=== PATIENT | male | born 1975 | race Hispanic/Latino ===

== ENCOUNTER 2018-05-04 19:05 | Emergency (ER) | payer OTHER, MEDICARE ==
[~2018-05-04 19:05] MED LIST: ALLO100T PO; COLC0.6C3 PO; FURO40TA5 PO; FURO80TA3 PO; GLIM4TAB3 PO; INS7030 SQ; INSU100V12 SQ; LABE200T5 PO; SITA100T12 PO
== END 2018-05-04 20:30 | disposition home or self-care (01) ==
LOC: EDH 19:05
DX: S90.821A Blister (nonthermal), right foot, initial encounter (principal); L03.115 Cellulitis of right lower limb; I10 Essential (primary) hypertension; E11.9 Type 2 diabetes mellitus without complications; X58.XXXA Exposure to other specified factors, initial encounter; Y93.89 Activity, other specified; Y92.89 Other specified places as the place of occurrence of the external cause; Y99.8 Other external cause status
CPT/HCPCS: 73630

== ENCOUNTER 2020-03-07 16:28 | Inpatient (IN) | payer OTHER, MEDICARE ==
[~2020-03-07] VITALS: Ht 167.6 cm; Wt 96.2 kg
[~2020-03-07 16:28] MED LIST changes: -ALLO100T PO; +AMLO2.5T2 PO; -COLC0.6C3 PO; +EZET10TA48 PO; -FURO40TA5 PO; -FURO80TA3 PO; -GLIM4TAB3 PO; +HUM10VIA SQ; -INS7030 SQ
[2020-03-07 17:10] LABS: BASOPHILS % (AUTO) 0.4 % (0.0-5.0); EOSINOPHILS % (AUTO) 7.5 % (0.0-8.0); HEMATOCRIT 22.2 % (42-54); LYMPHOCYTES % (AUTO) 11.5 % (21.0-51.0); MEAN CORPUSCULAR HEMOGLOBIN 30.3 pg (27.0-33.0); MEAN CORPUSCULAR HGB CONC 32.9 g/dL (32.0-36.0); MEAN CORPUSCULAR VOLUME 92.1 fL (79-99); MONOCYTES % (AUTO) 6.2 % (3.0-13.0); NEUTROPHILS % (AUTO) 73.7 % (40.0-77.0); PLATELET COUNT (AUTO) 148 K/uL (130-400); RED BLOOD CELL COUNT(AUTO) 2.41 MIL/uL (4.50-6.20); RED CELL DISTRIBUTION WIDTH 13.2 % (11.0-15.5); WHITE BLOOD COUNT (AUTO) 7.6 K/uL (4.8-10.8)
[2020-03-07 17:27] LABS: INR 1.15 (0.85-1.15); PARTIAL THROMBOPLASTIN TIME 33.1 SEC (26.3-35.5); PROTHROMBIN TIME 12.4 SEC (9.6-11.6)
[2020-03-07 17:47] LABS: ALBUMIN 3.7 g/dL (3.5-5.0); BILIRUBIN,TOTAL 0.4 mg/dL (0.2-1.0); TOTAL PROTEIN, SERUM 7.9 g/dL (6.0-8.3)
[2020-03-07 17:59] LABS: CREATININE 18.6 mg/dL (0.5-1.5); POTASSIUM 6.9 mmol/L (3.5-5.1)
[2020-03-07] MEDS ORDERED: SODIUM POLYSTYRENE SULFONATE 15 GM/60 ML ML ONE ×3 (18:08→23:06)
[2020-03-07] MEDS ORDERED: PANTOPRAZOLE 40 MG/VIAL ONE (18:09)
[2020-03-07] MEDS ORDERED: DEXTROSE 50%-WATER 50 ML DISP.SYRIN IV ONE (18:09)
[2020-03-07] MEDS ORDERED: SODIUM BICARB 50MEQ 50ML VIAL 50 ML ONE (18:09)
[2020-03-07] MEDS ORDERED: FUROSEMIDE 10 MG/ML 4ML VIAL ONE (18:09)
[2020-03-07] MEDS ORDERED: INSULIN HUMULIN R 100 UNIT/ML 3ML ONE (18:10)
[2020-03-07] MEDS ORDERED: ALBUTEROL SULFATE 0.083% 2.5 MG/3 ML INH IH ONE (18:30)
[2020-03-07] MEDS ORDERED: LACTULOSE 20 GM/30 ML UDCUP PO PRN (19:00)
[2020-03-07] MEDS ORDERED: ACETAMINOPHEN 325 MG TAB PO PRN ×2 (19:00)
[2020-03-07] MEDS ORDERED: ONDANSETRON HCL 4 MG/2 ML VIAL IV PRN (19:00)
[2020-03-07] MEDS ORDERED: HYDRALAZINE HCL 20 MG/ML VIAL IV PRN (19:30)
[2020-03-07] MEDS ORDERED: SODIUM CHLORIDE 0.9% 100 ML IV ONE (20:17)
[2020-03-07] MEDS: INSULIN HUMULIN R 100 UNIT/ML 3ML SQ SCH (21:00)
[2020-03-07 22:26] LABS: HEMATOCRIT 21.5 % (42-54)
[2020-03-07] MEDS: SODIUM BICARBONATE 650 MG TAB PO SCH (23:00)
[2020-03-07] MEDS ORDERED: PHARMACY COMMUNICATION MISC SCH (23:00)
[2020-03-07] MEDS: SODIUM POLYSTYRENE SULFONATE 15 GM/60 ML ML PO SCH (23:00)
[2020-03-08] VITALS (12 sets, daily range): BP systolic 117–173; BP diastolic 59–83
[2020-03-08 04:35] LABS: APPEARANCE,URINE Clear (CLEAR); BILIRUBIN,URINE Negative (NEGATIVE); COLOR,URINE Yellow (YELLOW); GLUCOSE, URINE (UA) Negative (NEGATIVE); KETONES,URINE Negative (NEGATIVE); LEUKOCYTE ESTERASE ,URINE Small (NEGATIVE); NITRATE,URINE Negative (NEGATIVE); OCCULT BLOOD,URINE Small (NEGATIVE); PROTEIN,URINE 300 mg/dL (NEGATIVE); UROBILINOGEN,URINE 0.2 mg/dL (0.2-1.0)
[2020-03-08 04:49] LABS: BACTERIA,URINE Few /HPF (None Seen); MUCUS,URINE Few LPF (None Seen); RBC,URINE 0-1 /HPF (0-1); SQUAMOUS EPITHELIAL CELL,UR Moderate /HPF (0-2)
[2020-03-08 06:05] LABS: BASOPHILS % (AUTO) 0.4 % (0.0-5.0); EOSINOPHILS % (AUTO) 7.6 % (0.0-8.0); LYMPHOCYTES % (AUTO) 10.5 % (21.0-51.0); MEAN CORPUSCULAR HEMOGLOBIN 30.7 pg (27.0-33.0); MEAN CORPUSCULAR HGB CONC 33.3 g/dL (32.0-36.0); MONOCYTES % (AUTO) 9.1 % (3.0-13.0); NEUTROPHILS % (AUTO) 71.7 % (40.0-77.0); PLATELET COUNT (AUTO) 144 K/uL (130-400); RED BLOOD CELL COUNT(AUTO) 2.25 MIL/uL (4.50-6.20); RED CELL DISTRIBUTION WIDTH 13.2 % (11.0-15.5); WHITE BLOOD COUNT (AUTO) 7.6 K/uL (4.8-10.8)
[2020-03-08 06:07] LABS: HEMATOCRIT 20.7 % (42-54)
[2020-03-08 06:17] LABS: POTASSIUM 5.1 mmol/L (3.5-5.1)
[2020-03-08 06:20] LABS: CREATININE 18.8 mg/dL (0.5-1.5)
[2020-03-08] MEDS ORDERED: FURO40TA5 PO (06:20)
[2020-03-08] MEDS ORDERED: CALC600T15 PO (06:20)
[2020-03-08] MEDS ORDERED: AMLO-257 PO (06:20)
--- NOTE | 2020-03-08 06:26 | NUR ---
PT ADMITTED FROM ER, REPORT FROM TIANA THORNTON. PT IS AAOX4, NO ACUTE DISTRESS. POC DISCUSSED WITH PATIENT. PT IS TO BE NPO UNTIL SEEN BY DR. CRUZ FOR POSSIBLE DIALYSIS CATHETER PLACEMENT FOR DIALYSIS. PT IS AWARE. PLAN FOR BLOOD TRANSFUSION, FIRST TO BE DISCUSSED WITH DR. CRUZ. INSTRUCTED TO CALL FOR ASSISTANCE IF NEEDED, CALL DAY WITH IN REACH. TELE MONITORING S 81
[2020-03-08] MEDS: INSULIN HUMULIN R 100 UNIT/ML 3ML SQ SCH ×3 (07:17→21:00)
--- NOTE | 2020-03-08 09:37 | NUR ---
CONSENT SIGNED FOR PERMA CATH PLACEMENT BY THE MOTHER. PT. IS BLIND TR. EYE AND TISHA SEES SPOTS WITH THE LT.
[2020-03-08] MEDS ORDERED: LABETALOL HCL 200 MG TABLET PO SCH (09:45)
[2020-03-08] MEDS ORDERED: LIDOCAINE HCL 1% MDV 50ML VIAL ONE (09:59)
[2020-03-08] MEDS ORDERED: MIDAZOLAM HCL 1 MG/ML 2ML VIAL ONE (10:33)
--- NOTE | 2020-03-08 11:18 | NUR ---
BACK FROM [employer]IPMENT. DOUBLE LUMEN PERMA-CATH IN PLACE, RT. UPPER CHEST. DRESSING IN PLACE CLEAN AND DRY. NO SWELLING , BRUISING NOTED.
[2020-03-08] MEDS ORDERED: EPOETIN ALFA 10,000 UNIT/ML VIAL SQ SCH (11:30)
[2020-03-08] MEDS ORDERED: COMPOUND IV MISC 1 EACH IVSOLN MISC PRN (11:45)
[2020-03-08] MEDS: AMLODIPINE BESYLATE 5 MG TAB PO SCH ×2 (12:17→12:19)
[2020-03-08] MEDS: SODIUM BICARBONATE 650 MG TAB PO SCH ×3 (12:19→21:36)
[2020-03-08] MEDS: PANTOPRAZOLE SODIUM 40 MG TABLET.DR PO SCH (12:19)
--- NOTE | 2020-03-08 12:35 | NUR ---
CONSENT FOR H-D HAS BEEN SIGNED AND H-D NURSE HAS BEEN NOTIFIED.
[2020-03-08 12:48] LABS: HEMATOCRIT 20.3 % (42-54)
[2020-03-08 13:01] LABS: HEMOGLOBIN A1C 5.5 % (4.0-6.0)
[2020-03-08 13:08] LABS: ALBUMIN 3.6 g/dL (3.5-5.0)
[2020-03-08 13:11] LABS: CREATININE 18.8 mg/dL (0.5-1.5)
[2020-03-08 13:39] LABS: % IRON SATURATION 42.8 % (30-44)
[2020-03-08] MEDS ORDERED: HEPARIN SODIUM 5000UNIT/ML 1ML VIAL ONE (16:07)
--- NOTE | 2020-03-08 17:15 | NUR ---
DCP CM met with pt discussed dc plans. Pt is semi-independent prior to admission, livest at home with son, mother lives close by. Pt has a shower chair. 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 Denies any other equipments/services. Feels safe to go back home, mother able to assist with transportation and needs as necessary. DC plan to home once stable. CM to continue to follow up. Addendum: 03/08/20 at 1717 by MICHELLE CARDONA LVN CM Amended: Links added.
--- NOTE | 2020-03-08 20:00 | NUR ---
assessment note patient awake alert, ox3, no sob,no c/o pain at this time , discuss with patient plan of care and expected outcome, patient verbalizes understanding via teach back
[2020-03-08] MEDS: SODIUM POLYSTYRENE SULFONATE 15 GM/60 ML ML PO SCH (20:02)
[2020-03-08] MEDS ORDERED: SODIUM CHLORIDE 0.9% 1000ML 1,000 ML IV PRN (21:00)
[2020-03-08] MEDS ORDERED: ACETAMINOPHEN 325 MG TAB PO PRN (21:00)
[2020-03-08] MEDS ORDERED: 0.9% SODIUM CHLORIDE 1000 ML IV BAG IV PRN (21:00)
[2020-03-08] MEDS ORDERED: HEPARIN SODIUM 5000UNIT/ML 1ML VIAL IJ PRN (21:00)
[2020-03-09] VITALS (7 sets, daily range): BP systolic 123–178; BP diastolic 67–86
[2020-03-09 05:48] LABS: BASOPHILS % (AUTO) 0.2 % (0.0-5.0); EOSINOPHILS % (AUTO) 6.9 % (0.0-8.0); LYMPHOCYTES % (AUTO) 13.5 % (21.0-51.0); MEAN CORPUSCULAR HEMOGLOBIN 30.7 pg (27.0-33.0); MEAN CORPUSCULAR HGB CONC 34.3 g/dL (32.0-36.0); MEAN CORPUSCULAR VOLUME 89.6 fL (79-99); MONOCYTES % (AUTO) 12.2 % (3.0-13.0); NEUTROPHILS % (AUTO) 66.9 % (40.0-77.0); PLATELET COUNT (AUTO) 142 K/uL (130-400); RED BLOOD CELL COUNT(AUTO) 2.31 MIL/uL (4.50-6.20); WHITE BLOOD COUNT (AUTO) 8.9 K/uL (4.8-10.8)
[2020-03-09 05:50] LABS: HEMATOCRIT 20.7 % (42-54)
[2020-03-09 05:52] LABS: POTASSIUM 3.7 mmol/L (3.5-5.1)
[2020-03-09 05:57] LABS: CREATININE 12.2 mg/dL (0.5-1.5)
[2020-03-09] MEDS: INSULIN HUMULIN R 100 UNIT/ML 3ML SQ SCH ×4 (06:50→20:45)
[2020-03-09 08:13] LABS: HEPATITIS Bs ANTIGEN SCREEN P Negative (Negative)
[2020-03-09] MEDS ORDERED: FUROSEMIDE 80 MG TABLET PO SCH (09:00)
[2020-03-09] MEDS ORDERED: CALCIUM CARBONATE 500 MG TABLET PO SCH (09:00)
[2020-03-09] MEDS: AMLODIPINE BESYLATE 5 MG TAB PO SCH (09:25)
[2020-03-09] MEDS: EZETIMIBE 10 MG TAB PO SCH (09:31)
[2020-03-09] MEDS: PANTOPRAZOLE SODIUM 40 MG TABLET.DR PO SCH (09:31)
[2020-03-09] MEDS: LISINOPRIL 40 MG TABLET PO SCH (09:32)
[2020-03-09] MEDS: IRON SUCROSE COMPLEX 100 MG in SODIUM CHLORIDE 0.9% 50 ML IV SCH (09:33)
[2020-03-09] MEDS: LABETALOL HCL 200 MG TABLET PO SCH (11:34)
[2020-03-09] MEDS: SODIUM BICARBONATE 650 MG TAB PO SCH (16:29)
[2020-03-09] MEDS: SODIUM POLYSTYRENE SULFONATE 15 GM/60 ML ML PO SCH (16:29)
--- NOTE | 2020-03-09 20:00 | NUR ---
assessment note awake alert ox3, no sob, no c/o pain at this time, right upper chest wall permacath intact, instruct patient to call nurse for assistance, teach patient plan of care and expected outcome , patient verbalizes understanding via teach back
[2020-03-10 04:35] VITALS: BP 162/77
[2020-03-10] MEDS: INSULIN HUMULIN R 100 UNIT/ML 3ML SQ SCH ×4 (06:03→20:44)
[2020-03-10 06:14] LABS: BASOPHILS % (AUTO) 0.3 % (0.0-5.0); HEMATOCRIT 27.6 % (42-54); LYMPHOCYTES % (AUTO) 11.4 % (21.0-51.0); MEAN CORPUSCULAR HEMOGLOBIN 30.3 pg (27.0-33.0); MEAN CORPUSCULAR HGB CONC 34.4 g/dL (32.0-36.0); MEAN CORPUSCULAR VOLUME 87.9 fL (79-99); MONOCYTES % (AUTO) 12.9 % (3.0-13.0); NEUTROPHILS % (AUTO) 68.1 % (40.0-77.0); NUCLEATED RED BLOOD CELLS 0.2 % (0.0-0.19); PLATELET COUNT (AUTO) 162 K/uL (130-400); RED BLOOD CELL COUNT(AUTO) 3.14 MIL/uL (4.50-6.20); RED CELL DISTRIBUTION WIDTH 12.5 % (11.0-15.5); WHITE BLOOD COUNT (AUTO) 11.5 K/uL (4.8-10.8)
[2020-03-10 06:26] LABS: MAGNESIUM 1.6 mg/dL (1.80-2.40); POTASSIUM 3.7 mmol/L (3.5-5.1)
[2020-03-10 06:50] LABS: CREATININE 8.4 mg/dL (0.5-1.5)
[2020-03-10 08:34] VITALS: BP 178/83
[2020-03-10] MEDS: LISINOPRIL 40 MG TABLET PO SCH ×2 (09:15→09:20)
[2020-03-10] MEDS: LABETALOL HCL 200 MG TABLET PO SCH (09:20)
[2020-03-10] MEDS: AMLODIPINE BESYLATE 5 MG TAB PO SCH ×2 (09:20→09:21)
[2020-03-10] MEDS: PANTOPRAZOLE SODIUM 40 MG TABLET.DR PO SCH (09:20)
[2020-03-10] MEDS: IRON SUCROSE COMPLEX 100 MG in SODIUM CHLORIDE 0.9% 50 ML IV SCH (09:21)
[2020-03-10] MEDS: EZETIMIBE 10 MG TAB PO SCH (10:43)
[2020-03-10 11:44] VITALS: BP 174/86
--- NOTE | 2020-03-10 14:00 | NUR ---
cm note met with patient and discussed need for HD setup at [facility]. pt is in agreement for referral, choice letter obtained.
[2020-03-10 16:59] VITALS: BP 175/75
[2020-03-10 20:22] VITALS: BP 196/94
[2020-03-10 23:32] VITALS: BP 166/69
[2020-03-11] VITALS (7 sets, daily range): BP systolic 152–198; BP diastolic 73–93
[2020-03-11] MEDS: INSULIN HUMULIN R 100 UNIT/ML 3ML SQ SCH ×4 (06:10→21:00)
[2020-03-11 06:11] LABS: CREATININE 5.6 mg/dL (0.5-1.5); MAGNESIUM 1.7 mg/dL (1.80-2.40); POTASSIUM 3.5 mmol/L (3.5-5.1)
[2020-03-11] MEDS: AMLODIPINE BESYLATE 5 MG TAB PO SCH (10:06)
[2020-03-11] MEDS: PANTOPRAZOLE SODIUM 40 MG TABLET.DR PO SCH (10:06)
[2020-03-11] MEDS: EZETIMIBE 10 MG TAB PO SCH (10:06)
[2020-03-11] MEDS: LABETALOL HCL 200 MG TABLET PO SCH ×2 (10:06→19:57)
[2020-03-11] MEDS: LISINOPRIL 40 MG TABLET PO SCH (10:07)
[2020-03-11] MEDS: IRON SUCROSE COMPLEX 100 MG in SODIUM CHLORIDE 0.9% 50 ML IV SCH (11:21)
[2020-03-11] MEDS ORDERED: HYDRALAZINE HCL 25 MG TABLET ONE (13:59)
[2020-03-11] MEDS ORDERED: HYDRALAZINE HCL 25 MG TABLET PO SCH (14:00)
--- NOTE | 2020-03-11 14:44 | NUR ---
Dr. Asencio Spoke to MD via telephone [phone] to inquire about plan for AV access procedure. I asked Dr. Asencio if he would like for me to schedule procedure for tomorrow and MD replied that he would come to hospital later today to "take care of it." So I clarified to Dr. Asencio, "You are coming to schedule the procedure yourself?" and he replied "Yes, I will do it."
--- NOTE | 2020-03-11 14:49 | NUR ---
cm note faxed clinical info to [facility] for dialysis setup, pending approval.
[2020-03-12] VITALS (25 sets, daily range): BP systolic 127–172; BP diastolic 50–94
[2020-03-12 05:02] LABS: HEMATOCRIT 26.4 % (42-54); MEAN CORPUSCULAR HEMOGLOBIN 30.1 pg (27.0-33.0); MEAN CORPUSCULAR HGB CONC 33.7 g/dL (32.0-36.0); MEAN CORPUSCULAR VOLUME 89.2 fL (79-99); RED BLOOD CELL COUNT(AUTO) 2.96 MIL/uL (4.50-6.20); RED CELL DISTRIBUTION WIDTH 12.5 % (11.0-15.5); WHITE BLOOD COUNT (AUTO) 11.6 K/uL (4.8-10.8)
[2020-03-12 05:11] LABS: CREATININE 7.3 mg/dL (0.5-1.5); POTASSIUM 3.2 mmol/L (3.5-5.1)
[2020-03-12] MEDS: INSULIN HUMULIN R 100 UNIT/ML 3ML SQ SCH ×4 (05:20→20:17)
[2020-03-12] MEDS ORDERED: CEFAZOLIN SODIUM 1 GM VIAL ONE ×2 (07:22→08:30)
[2020-03-12] MEDS ORDERED: OCTYL 2-CYANOACRYLATE 1 EACH TP ONE (07:22)
[2020-03-12] MEDS ORDERED: LIDOCAINE PF 2% 5ML ABBOJECT ONE (07:42)
[2020-03-12] MEDS ORDERED: FENTANYL CITRATE PF 50 MCG/1 ML 2ML VIAL ONE (07:42)
[2020-03-12] MEDS ORDERED: PROPOFOL 10 MG/ML 20ML VIAL IV ONE (07:42)
[2020-03-12] MEDS ORDERED: MIDAZOLAM HCL 1 MG/ML 2ML VIAL ONE (07:42)
[2020-03-12] MEDS ORDERED: SUCCINYLCHOLINE CHLORIDE 20 MG/ML 10 ML VIAL ONE (07:42)
[2020-03-12] MEDS ORDERED: ROCURONIUM 10MG/1ML SYR 10 MG/ML ML ONE (07:42)
[2020-03-12] MEDS ORDERED: CLINDAMYCIN 900 MG/D5% WATER 50 ML IV SCH (08:00)
[2020-03-12] MEDS ORDERED: HEPARIN SODIUM 1000UNIT/ML 10ML VIAL ONE (09:25)
[2020-03-12] MEDS ORDERED: PROTAMINE SULFATE 10 MG/ML 25ML VIAL IV ONE (09:25)
[2020-03-12] MEDS ORDERED: NEOSTIGMINE 5MG/5ML SYR IV ONE (09:30)
[2020-03-12] MEDS ORDERED: GLYCOPYRROLATE 1 MG/5 ML SYRINGE ONE (09:30)
[2020-03-12] MEDS ORDERED: DEXAMETHASONE SOD PHOSPHATE 10MG/ML 1ML VIAL ONE (09:32)
[2020-03-12] MEDS ORDERED: TRAMADOL HCL 50 MG TABLET PO PRN ×2 (09:45)
[2020-03-12] MEDS: AMLODIPINE BESYLATE 5 MG TAB PO SCH (12:18)
[2020-03-12] MEDS: EZETIMIBE 10 MG TAB PO SCH (13:41)
[2020-03-12] MEDS: PANTOPRAZOLE SODIUM 40 MG TABLET.DR PO SCH (13:41)
[2020-03-12] MEDS: LABETALOL HCL 200 MG TABLET PO SCH ×2 (13:42→20:27)
[2020-03-12] MEDS: IRON SUCROSE COMPLEX 100 MG in SODIUM CHLORIDE 0.9% 50 ML IV SCH (13:49)
--- NOTE | 2020-03-12 15:15 | NUR ---
RD NOTE Pt admitted due to ESRD and hyperkalemia Pt has new ESRD dx and HD initiation. RD consulted for ESRD diet education. Current diet order: CLD due to AV fistula procedure on 03/12/20 Prior PO intake as per EMR was 100%. Upon admission pt had an A1c of 5.5, K 6.9, creat of 18.6. RD RECOMMENDATION: When medically appropriate to advance diet consider a Renal HD diet with a [address] will follow with diet education. Monitor PO tolerance and intake. LABS: HGB 8.9, HCT 26.4, K 3.2, BUN 32, CREAT 7.3, GFR 9, BG 136, ALB 3.6, MG 1.7, A1C 5.5, TOT CA 6.7 LBM: 03/11/20 Addendum: 03/12/20 at [address] Amended: Links added.
[2020-03-12] MEDS: LISINOPRIL 40 MG TABLET PO SCH (16:29)
[2020-03-12] MEDS ORDERED: BENZOCAINE/MENTH/CETYLPYRD CL 1 EACH LOZENGE MM PRN (23:15)
[2020-03-12] MEDS ORDERED: BENZOCAINE/MENTH/CETYLPYRD CL 1 EACH LOZENGE MM ONE (23:20)
[2020-03-13 03:52] VITALS: BP 160/69
[2020-03-13 05:39] LABS: BASOPHILS % (AUTO) 0.2 % (0.0-5.0); EOSINOPHILS % (AUTO) 0.1 % (0.0-8.0); HEMATOCRIT 24.3 % (42-54); LYMPHOCYTES % (AUTO) 5.4 % (21.0-51.0); MEAN CORPUSCULAR HEMOGLOBIN 30.3 pg (27.0-33.0); MEAN CORPUSCULAR HGB CONC 33.7 g/dL (32.0-36.0); MEAN CORPUSCULAR VOLUME 89.7 fL (79-99); NEUTROPHILS % (AUTO) 87.8 % (40.0-77.0); PLATELET COUNT (AUTO) 159 K/uL (130-400); RED BLOOD CELL COUNT(AUTO) 2.71 MIL/uL (4.50-6.20); RED CELL DISTRIBUTION WIDTH 12.6 % (11.0-15.5); WHITE BLOOD COUNT (AUTO) 15.7 K/uL (4.8-10.8)
[2020-03-13] MEDS: INSULIN HUMULIN R 100 UNIT/ML 3ML SQ SCH ×3 (05:59→16:30)
[2020-03-13 06:15] LABS: POTASSIUM 3.8 mmol/L (3.5-5.1)
[2020-03-13 06:20] LABS: CREATININE 8.7 mg/dL (0.5-1.5)
[2020-03-13] MEDS ORDERED: INSULIN GLARGINE 100 UNITS/ML 10 ML VIAL SQ SCH (08:00)
[2020-03-13 08:38] VITALS: BP 176/82
[2020-03-13] MEDS: IRON SUCROSE COMPLEX 100 MG in SODIUM CHLORIDE 0.9% 50 ML IV SCH (09:00)
--- NOTE | 2020-03-13 11:24 | NUR ---
CM Note: [facility] approval and acceptance, chair time MWF @ 3rd shift. CM spoke to Yony joseph/[facility] Intake, pt has tentative approval and chair time MWF @ 3rd shift. Pt safe to dc once MD clear. Primary nurse Ayaka KIM aware. CM to continue to follow up.
[2020-03-13 11:30] VITALS: BP 175/74
--- NOTE | 2020-03-13 15:49 | NUR ---
RD TEACHING NOTE New dialysis pt. Pt was given education and tips to limit potassium, phosphorus and sodium. Pt verbalized understanding. Pt is visually impaired however, he stated his mother can read the handouts provided to him; pt lives with mom. RD slowly went through foods recommended vs foods not recommended. Pt had questions on any community program that delivered hot meals. Pt was encouraged to ask Case Management for any outpatient programs. Pt was encouraged to communicate any nutritional concerns to outpatient renal dietitian. Handouts were left at bedside. Pt encouraged to contact RD if he had any other questions. Pt's PO intake is of 75-100% RD will continue to follow pt's status Addendum: 03/13/20 at [address] Amended: Links added.
[2020-03-13] MEDS: PANTOPRAZOLE SODIUM 40 MG TABLET.DR PO SCH (15:59)
[2020-03-13] MEDS: AMLODIPINE BESYLATE 5 MG TAB PO SCH (15:59)
[2020-03-13] MEDS: EZETIMIBE 10 MG TAB PO SCH (15:59)
[2020-03-13] MEDS: LISINOPRIL 40 MG TABLET PO SCH (16:00)
[2020-03-13] MEDS: LABETALOL HCL 200 MG TABLET PO SCH (16:01)
[2020-03-13 17:09] VITALS: BP 182/89
--- NOTE | 2020-03-13 17:47 | NUR ---
CM Note: [facility] Nic MWF @ 2:30pm CM spoke to Jayna w/[facility] Nic Intake, pt has appointment MWF @2:30pm starting tomorrow Thursday. Pt given instructions. Pt to arrive at center 30min prior to chair time. Pt to bring ID card, Insurance card, medication bottles, pt verbalized understanding. Primary nurse Ayaka KIM aware. CM to continue to follow up.
[2020-03-13 20:38] VITALS: BP 160/88
[2020-03-13] MEDS ORDERED: HYDRALAZINE HCL 25 MG TABLET PO SCH (21:00)
--- NOTE | 2020-03-13 21:39 | NUR ---
PER MD PT WAS DC'D HOME. DISCHARGE INSTRUCTIONS GIVEN TO PT AND MOTHER. THEY WERE PROVIDED WITH EXIT CARE ON NEW MEDICATIONS PRESCRIBED BY MD, PRESCRIPTIONS PLACED IN CHART, EDUCATION ON DIALYSIS ANDF DIALYSIS DIET WERE ALSO PROVIDED. PT WAS EDUCATED ON WHAT HE CAN OR CANNOT CONSUME. PT WAS PROVIDED WITH F/U APPTS AND OFFICE PHONE NUMBERS AND INSTRUCTED HIS MOTHER TO ASSIST HIM WITH CALL TO MAKE APPTS. THE PT WAS INSTRUCTED TO GO TO [facility] IN [place] FOR DIALYSIS TOMORROW AND PROVIDED WITH TIME AND OFFICE NUMBER. PT AND HIS MOTHER BOTH STATED UNDERSTANDING AND NO QUESTIONS AT THIS POINT. TELE AND IV REMOVED, TIP INTACT.
== END 2020-03-13 20:25 | disposition home or self-care (01) | DRG 673 ==
LOC: EDH 16:28 → EDHIP 18:59 → 3AH 03-08 04:38 → 3CH 03-12 10:21
PROVIDERS: ADMIT Internal Medicine; ATTEND Internal Medicine
PROC: 0JH63XZ Insertion of Tunneled Vascular Access Device into Chest Subcutaneous Tissue and Fascia, Percutaneous Approach (ICD-10-PCS; 2020-03-08)
PROC: 5A1D70Z Performance of Urinary Filtration, Intermittent, Less than 6 Hours Per Day (ICD-10-PCS; 2020-03-08)
PROC: 02H633Z Insertion of Infusion Device into Right Atrium, Percutaneous Approach (ICD-10-PCS; 2020-03-08)
PROC: B5181ZA Fluoroscopy of Superior Vena Cava using Low Osmolar Contrast, Guidance (ICD-10-PCS; 2020-03-08)
PROC: B548ZZA Ultrasonography of Superior Vena Cava, Guidance (ICD-10-PCS; 2020-03-08)
PROC: 30233N1 Transfusion of Nonautologous Red Blood Cells into Peripheral Vein, Percutaneous Approach (ICD-10-PCS; 2020-03-09)
PROC: 5A1D70Z Performance of Urinary Filtration, Intermittent, Less than 6 Hours Per Day (ICD-10-PCS; 2020-03-09)
PROC: 5A1D70Z Performance of Urinary Filtration, Intermittent, Less than 6 Hours Per Day (ICD-10-PCS; 2020-03-11)
PROC: 031C0ZF Bypass Left Radial Artery to Lower Arm Vein, Open Approach (ICD-10-PCS; principal; 2020-03-12 08:00)
PROC: 5A1D70Z Performance of Urinary Filtration, Intermittent, Less than 6 Hours Per Day (ICD-10-PCS; 2020-03-13)
DX: I12.0 Hypertensive chronic kidney disease with stage 5 chronic kidney disease or end stage renal disease (principal); N18.6 End stage renal disease; K92.2 Gastrointestinal hemorrhage, unspecified; D63.8 Anemia in other chronic diseases classified elsewhere; E87.5 Hyperkalemia; Z88.0 Allergy status to penicillin; Z20.828 Contact with and (suspected) exposure to other viral communicable diseases; E11.22 Type 2 diabetes mellitus with diabetic chronic kidney disease; E11.319 Type 2 diabetes mellitus with unspecified diabetic retinopathy without macular edema; E66.9 Obesity, unspecified; E11.65 Type 2 diabetes mellitus with hyperglycemia; E11.42 Type 2 diabetes mellitus with diabetic polyneuropathy; E78.5 Hyperlipidemia, unspecified; E83.51 Hypocalcemia; M10.9 Gout, unspecified; Z68.33 Body mass index [BMI] 33.0-33.9, adult; Z79.4 Long term (current) use of insulin; Z82.3 Family history of stroke; Z82.49 Family history of ischemic heart disease and other diseases of the circulatory system; Z83.3 Family history of diabetes mellitus; Z91.15 Patient's noncompliance with renal dialysis; Z99.2 Dependence on renal dialysis
CPT/HCPCS: 36415; 36430; 36558; 71045; 77001; 80048; 80053; 80061; 81001; 82040; 82270; 82550; 82565; 82728; 82948; 83036; 83540; 83550; 83735; 84132; 84484; 84520; 85014; 85018; 85025; 85027; 85610; 85730; 86701; 86704; 86706; 86850; 86900; 86901; 86922; 86923; 87340; 87390; 87520; 90935; 93005; 93971; 94640; 99156; 99157; 99291; C1750; C9113; G0378; J0330; J0690; J1100; J1644; J1756; J1815; J1940; J2001; J2250; J2704; J2710; J2720; J3010; J3490; J7030; J7070; P9016; U0003

== ENCOUNTER → 2020-04-04 | Outpatient (CLI) | payer OTHER, MEDICARE ==
[~2020-04-04] MED LIST changes: +AMLO-257 PO; -AMLO2.5T2 PO; +CALC600T15 PO; +FURO40TA5 PO; -HUM10VIA SQ; -INSU100V12 SQ; -LABE200T5 PO; -SITA100T12 PO
== END | disposition home or self-care (01) ==
LOC: RAH 08:27
PROVIDERS: ATTEND Internal Medicine Nephrology
DX: T78.49XA Other allergy, initial encounter (principal); Z99.2 Dependence on renal dialysis
CPT/HCPCS: 71046

== ENCOUNTER 2020-09-04 08:34 | Day surgery (SDC) | payer OTHER, MEDICARE ==
[2020-08-30 09:03] LABS: BASOPHILS % (AUTO) 0.8 % (0.0-5.0); EOSINOPHILS % (AUTO) 6.6 % (0.0-8.0); HEMATOCRIT 32.3 % (42-54); LYMPHOCYTES % (AUTO) 25.2 % (21.0-51.0); MEAN CORPUSCULAR HEMOGLOBIN 31.8 pg (27.0-33.0); MEAN CORPUSCULAR HGB CONC 34.1 g/dL (32.0-36.0); MEAN CORPUSCULAR VOLUME 93.4 fL (79-99); MONOCYTES % (AUTO) 9.4 % (3.0-13.0); NEUTROPHILS % (AUTO) 57.7 % (40.0-77.0); PLATELET COUNT (AUTO) 203 K/uL (130-400); RED BLOOD CELL COUNT(AUTO) 3.46 MIL/uL (4.50-6.20); RED CELL DISTRIBUTION WIDTH 13.2 % (11.0-15.5)
[2020-08-30 09:18] LABS: POTASSIUM 4.6 mmol/L (3.5-5.1)
[2020-08-30 09:19] LABS: INR 1.12 (0.85-1.15); PROTHROMBIN TIME 12.1 SEC (9.6-11.6)
[2020-08-30 09:20] LABS: PARTIAL THROMBOPLASTIN TIME 28.8 SEC (26.3-35.5)
[2020-08-30 09:29] LABS: CREATININE 8.5 mg/dL (0.5-1.5)
[2020-09-03 11:52] VITALS: BP 119/72
[~2020-09-04] VITALS: Ht 167.6 cm; Wt 80.1 kg
[2020-09-04] VITALS (7 sets, daily range): BP systolic 109–174; BP diastolic 66–83
[~2020-09-04 08:34] MED LIST changes: +CALC-1125 PO; -CALC600T15 PO
[2020-09-04] MEDS ORDERED: IODIXANOL 320 MG/ML 100 ML VIAL ONE ×2 (09:42→11:12)
[2020-09-04] MEDS ORDERED: LIDOCAINE HCL 1% MDV 50ML VIAL ONE (09:42)
[2020-09-04] MEDS ORDERED: HEPARIN SODIUM 1000UNIT/ML 10ML VIAL ONE (09:42)
[2020-09-04] MEDS ORDERED: SODIUM CHLORIDE 0.9% 1000ML 1,000 ML IV ONE (14:49)
== END 2020-09-04 14:00 | disposition home or self-care (01) ==
LOC: DAH 08:34
PROVIDERS: ATTEND Thoracic Surgery (Cardiothoracic Vascular Surgery)
DX: T82.590A Other mechanical complication of surgically created arteriovenous fistula, initial encounter (principal); I77.0 Arteriovenous fistula, acquired; Z79.899 Other long term (current) drug therapy; I87.1 Compression of vein; Z79.01 Long term (current) use of anticoagulants; Z88.0 Allergy status to penicillin; Z79.4 Long term (current) use of insulin; Z88.8 Allergy status to other drugs, medicaments and biological substances; Y83.2 Surgical operation with anastomosis, bypass or graft as the cause of abnormal reaction of the patient, or of later complication, without mention of misadventure at the time of the procedure
CPT/HCPCS: 36415; 36902; 36907; 80048; 82948 ×2; 85025; 85610; 85730; A4215; A4221; A4222; A4223; A4663; C1725 ×2; C1769 ×4; C1894 ×3; J1644 ×2; J3490; J7030; Q9967 ×2

== ENCOUNTER 2021-03-16 09:31 | Emergency (ER) | payer OTHER, MEDICARE ==
[~2021-03-16] VITALS: Ht 167.6 cm; Wt 81.6 kg
[2021-03-16] MEDS ORDERED: LIDOCAINE HCL 2% JELLY 5 ML ONE (09:54)
[2021-03-16 11:46] VITALS: BP 164/74
== END 2021-03-16 11:48 | disposition home or self-care (01) ==
LOC: EDH 09:31
DX: R33.9 Retention of urine, unspecified (principal); E78.00 Pure hypercholesterolemia, unspecified; I11.9 Hypertensive heart disease without heart failure; Z88.0 Allergy status to penicillin; Z79.899 Other long term (current) drug therapy; Z98.890 Other specified postprocedural states
CPT/HCPCS: 51702

== ENCOUNTER 2021-03-26 14:35 | Emergency (ER) | payer OTHER, MEDICARE ==
[~2021-03-26] VITALS: Ht 167.6 cm; Wt 79.4 kg
[2021-03-26] MEDS ORDERED: HYDROCODONE/ACETAMINOPHEN 5/325 MG TAB PO STA (15:47)
[2021-03-26] MEDS ORDERED: LIDOCAINE HCL 2% VISCOUS 15 ML UDCUP PO ONE (16:00)
[2021-03-26 16:18] VITALS: BP 112/80
== END 2021-03-26 16:20 | disposition home or self-care (01) ==
LOC: EDH 14:35
DX: T83.098A Other mechanical complication of other urinary catheter, initial encounter (principal); I10 Essential (primary) hypertension; E11.9 Type 2 diabetes mellitus without complications; Z88.0 Allergy status to penicillin; Z79.899 Other long term (current) drug therapy; Y83.8 Other surgical procedures as the cause of abnormal reaction of the patient, or of later complication, without mention of misadventure at the time of the procedure; Y92.89 Other specified places as the place of occurrence of the external cause

== ENCOUNTER 2022-05-14 07:28 | Emergency (ER) | payer OTHER, MEDICARE ==
[~2022-05-14] VITALS: Ht 167.6 cm; Wt 95.7 kg
[~2022-05-14 07:28] MED LIST changes: -AMLO-257 PO; -CALC-1125 PO; -EZET10TA48 PO; +FOLI1TAB85 PO; -FURO40TA5 PO; +INSLAN SQ; +LEVO750T68 PO; +LINA5TAB PO
[2022-05-14] MEDS ORDERED: HYDROMORPHONE 0.5 MG SYG (0.5MG/0.5ML) IM ONE (08:00)
[2022-05-14] MEDS ORDERED: ACETAMINOPHEN 500 MG TABLET PO ONE (08:00)
[2022-05-14 09:24] LABS: BASOPHILS % (AUTO) 0.4 % (0.0-5.0); EOSINOPHILS % (AUTO) 3.9 % (0.0-8.0); HEMATOCRIT 34.6 % (42-54); LYMPHOCYTES % (AUTO) 12.3 % (21.0-51.0); MEAN CORPUSCULAR HEMOGLOBIN 33.1 pg (27.0-33.0); MEAN CORPUSCULAR HGB CONC 34.7 g/dL (32.0-36.0); MEAN CORPUSCULAR VOLUME 95.6 fL (79-99); MONOCYTES % (AUTO) 7.1 % (3.0-13.0); NEUTROPHILS % (AUTO) 75.4 % (40.0-77.0); PLATELET COUNT (AUTO) 207 K/uL (130-400); RED BLOOD CELL COUNT(AUTO) 3.62 MIL/uL (4.50-6.20); RED CELL DISTRIBUTION WIDTH 13.1 % (11.0-15.5); WHITE BLOOD COUNT (AUTO) 15.6 K/uL (4.8-10.8)
[2022-05-14 09:32] LABS: ALBUMIN 3.5 g/dL (3.5-5.0); POTASSIUM 5.5 mmol/L (3.5-5.1)
[2022-05-14 09:34] LABS: TOTAL PROTEIN, SERUM 7.6 g/dL (6.0-8.3)
[2022-05-14 09:37] LABS: CREATININE 12.3 mg/dL (0.5-1.5)
[2022-05-14 09:51] VITALS: BP 149/86
[2022-05-14] MEDS ORDERED: ACET-2079 PO (09:54)
== END 2022-05-14 09:57 | disposition home or self-care (01) ==
LOC: EDH 07:28
DX: N20.0 Calculus of kidney (principal); I12.0 Hypertensive chronic kidney disease with stage 5 chronic kidney disease or end stage renal disease; E11.22 Type 2 diabetes mellitus with diabetic chronic kidney disease; N18.6 End stage renal disease; Z99.2 Dependence on renal dialysis; Z79.4 Long term (current) use of insulin; Z79.899 Other long term (current) drug therapy
CPT/HCPCS: 99284; 80053; 83690; 85025; 36415; 74176; 96372; J1170

== ENCOUNTER 2023-09-17 11:08 | Inpatient (IN) | payer OTHER, MEDICARE ==
[~2023-09-17] VITALS: Ht 167.6 cm; Wt 75.9 kg
[~2023-09-17 11:08] MED LIST changes: +ACET-2079 PO
[2023-09-17 11:46] LABS: BASOPHILS # (AUTO) 0.06 K/uL (0.00-0.20); BASOPHILS % (AUTO) 0.3 % (0.0-5.0); EOSINOPHILS # (AUTO) 0.16 K/uL (0.00-0.70); EOSINOPHILS % (AUTO) 0.8 % (0.0-8.0); HEMATOCRIT 46.5 % (42-54); IMMATURE GRANULOCYTE ABSOLUTE 0.11 K/uL (0-1); LYMPHOCYTES % (AUTO) 9.7 % (21.0-51.0); MEAN CORPUSCULAR HEMOGLOBIN 34.4 pg (27.0-33.0); MEAN CORPUSCULAR HGB CONC 36.3 g/dL (32.0-36.0); MEAN CORPUSCULAR VOLUME 94.7 fL (79-99); MONOCYTES # (AUTO) 2.6 K/uL (0.1-1.0); MONOCYTES % (AUTO) 12.6 % (3.0-13.0); NEUTROPHILS # (AUTO) 15.6 K/uL (1.8-7.7); NEUTROPHILS % (AUTO) 76.1 % (40.0-77.0); PLATELET COUNT (AUTO) 214 K/uL (130-400); RED BLOOD CELL COUNT(AUTO) 4.91 MIL/uL (4.50-6.20); RED CELL DISTRIBUTION WIDTH 13.1 % (11.0-15.5); WHITE BLOOD COUNT (AUTO) 20.5 K/uL (4.8-10.8)
[2023-09-17 11:59] LABS: ALBUMIN 3.6 g/dL (3.5-5.0); BILIRUBIN,TOTAL 2.1 mg/dL (0.2-1.0); TOTAL PROTEIN, SERUM 8.6 g/dL (6.0-8.3)
[2023-09-17 12:04] LABS: CREATININE 8.7 mg/dL (0.5-1.3)
[2023-09-17] MEDS: METRONIDAZOLE 500MG/100ML BAG IV ONE (14:59)
[2023-09-17] MEDS: LEVOFLOXACIN 500 MG/D5W 100 ML 100 ML IV SCH (15:20)
[2023-09-17 15:36] LABS: INR 1.15 (0.85-1.15); PROTHROMBIN TIME 13.4 SEC (9.6-11.6)
[2023-09-17 15:38] LABS: PARTIAL THROMBOPLASTIN TIME 38.4 SEC (26.3-35.5)
[2023-09-17] MEDS: MORPHINE 2 MG SYG IVP ONE (17:46)
[2023-09-17] MEDS: ONDANSETRON 4MG INJ IVP ONE (17:46)
[2023-09-17] MEDS: HYDROMORPHONE 0.5 MG SYG (0.5MG/0.5ML) IVP PRN (20:22)
[2023-09-17] MEDS: ONDANSETRON 4MG INJ IVP PRN (20:22)
[2023-09-17 20:40] VITALS: BP 147/88; PULSE 101; RESP 20; O2SAT 100
[2023-09-17] MEDS: METRONIDAZOLE 500MG/100ML BAG IV SCH (21:19)
[2023-09-17] MEDS ORDERED: SEMA2PEN SQ (21:53)
[2023-09-17] MEDS ORDERED: FOLI0.8T22 PO (21:53)
[2023-09-17] MEDS ORDERED: SEVE0.8P3 PO (21:53)
[2023-09-18] VITALS (34 sets, daily range): BP systolic 90–142; BP diastolic 50–97; PULSE 87–108; RESP 16–20; TEMP 98–98.3; O2SAT 99–100
[2023-09-18 05:24] LABS: BASOPHILS # (AUTO) 0.05 K/uL (0.00-0.20); BASOPHILS % (AUTO) 0.2 % (0.0-5.0); HEMATOCRIT 43.2 % (42-54); IMMATURE GRANULOCYTE ABSOLUTE 0.23 K/uL (0-1); LYMPHOCYTES # (AUTO) 0.9 K/uL (1.0-4.8); LYMPHOCYTES % (AUTO) 3.9 % (21.0-51.0); MEAN CORPUSCULAR HEMOGLOBIN 34.2 pg (27.0-33.0); MEAN CORPUSCULAR HGB CONC 34.7 g/dL (32.0-36.0); MEAN CORPUSCULAR VOLUME 98.6 fL (79-99); MONOCYTES # (AUTO) 2.7 K/uL (0.1-1.0); MONOCYTES % (AUTO) 10.9 % (3.0-13.0); NEUTROPHILS # (AUTO) 20.5 K/uL (1.8-7.7); NEUTROPHILS % (AUTO) 84.1 % (40.0-77.0); PLATELET COUNT (AUTO) 185 K/uL (130-400); RED BLOOD CELL COUNT(AUTO) 4.38 MIL/uL (4.50-6.20); RED CELL DISTRIBUTION WIDTH 12.8 % (11.0-15.5); WHITE BLOOD COUNT (AUTO) 24.4 K/uL (4.8-10.8)
[2023-09-18 05:36] LABS: PHOSPHORUS 5.1 mg/dL (2.5-4.9); POTASSIUM 5.5 mmol/L (3.5-5.1)
[2023-09-18 05:40] LABS: CREATININE 10.3 mg/dL (0.5-1.3)
[2023-09-18] MEDS: INSULIN HUMULIN R 100 UNIT/ML 3ML SQ SCH (06:09)
[2023-09-18] MEDS: PANTOPRAZOLE 40 MG/VIAL IVP SCH (08:07)
[2023-09-18] MEDS: HYDROMORPHONE 1 MG INJ IVP ONE (09:41)
[2023-09-18] MEDS: ALBUMIN (HUMAN) 25% 100 ML IV PRN (13:31)
[2023-09-18] MEDS: SEVELAMER HCL 800 MG TABLET PO SCH (16:10)
[2023-09-18] MEDS: HYDROMORPHONE 0.5 MG SYG (0.5MG/0.5ML) IVP PRN (16:37)
[2023-09-18 17:09] LABS: HEPATITIS B CORE AB TOTAL Non-Reactive (Nonreactive); HEPATITIS B SURFACE ANTIBODY Positive (Reactive); HEPATITIS B SURFACE ANTIGEN Non-Reactive (Nonreactive)
[2023-09-19] VITALS (70 sets, daily range): BP systolic 79–113; BP diastolic 38–74; PULSE 92–121; RESP 13–37; O2SAT 95–99
[2023-09-19 03:38] LABS: BASOPHILS # (AUTO) 0.06 K/uL (0.00-0.20); BASOPHILS % (AUTO) 0.2 % (0.0-5.0); EOSINOPHILS # (AUTO) 0.14 K/uL (0.00-0.70); EOSINOPHILS % (AUTO) 0.5 % (0.0-8.0); HEMATOCRIT 41.1 % (42-54); IMMATURE GRANULOCYTE ABSOLUTE 0.95 K/uL (0-1); LYMPHOCYTES # (AUTO) 0.8 K/uL (1.0-4.8); LYMPHOCYTES % (AUTO) 2.9 % (21.0-51.0); MEAN CORPUSCULAR HEMOGLOBIN 33.6 pg (27.0-33.0); MEAN CORPUSCULAR HGB CONC 33.8 g/dL (32.0-36.0); MEAN CORPUSCULAR VOLUME 99.3 fL (79-99); MONOCYTES # (AUTO) 2.8 K/uL (0.1-1.0); MONOCYTES % (AUTO) 9.6 % (3.0-13.0); NEUTROPHILS # (AUTO) 23.8 K/uL (1.8-7.7); NEUTROPHILS % (AUTO) 83.5 % (40.0-77.0); PLATELET COUNT (AUTO) 151 K/uL (130-400); RED BLOOD CELL COUNT(AUTO) 4.14 MIL/uL (4.50-6.20); RED CELL DISTRIBUTION WIDTH 13.1 % (11.0-15.5); WHITE BLOOD COUNT (AUTO) 28.5 K/uL (4.8-10.8)
[2023-09-19 04:04] LABS: ALBUMIN 2.9 g/dL (3.5-5.0); BILIRUBIN,TOTAL 4.8 mg/dL (0.2-1.0); POTASSIUM 5.5 mmol/L (3.5-5.1)
[2023-09-19 04:32] LABS: CREATININE 8.5 mg/dL (0.5-1.3)
[2023-09-19] MEDS ORDERED: PROPOFOL 10 MG/ML 20ML VIAL IV ONE (07:47)
[2023-09-19] MEDS ORDERED: FENTANYL CITRATE PF 50 MCG/1 ML 2ML VIAL ONE ×3 (07:47→09:43)
[2023-09-19] MEDS ORDERED: MIDAZOLAM HCL 1 MG/ML 2ML VIAL ONE (07:47)
[2023-09-19] MEDS ORDERED: MEPERIDINE-PF 25 MG/ML SYG ONE (08:00)
[2023-09-19] MEDS ORDERED: ONDANSETRON 4MG INJ ONE (08:11)
[2023-09-19] MEDS ORDERED: ROCURONIUM BROMIDE 10MG/1ML 5ML VL ONE (08:11)
[2023-09-19] MEDS ORDERED: DEXAMETHASONE SOD PHOSPHATE 10MG/ML 1ML VIAL ONE (08:13)
[2023-09-19] MEDS: Vitamin B Complex/Vit C/Folic Acid PO SCH (09:00)
[2023-09-19] MEDS ORDERED: VASOPRESSIN 20 UNITS/ML 1ML VIAL ONE (09:01)
[2023-09-19] MEDS: BUPIVACAINE/PF 0.25% 30ML VIAL IJ ONE (09:23)
[2023-09-19] MEDS: BUPIVACAINE/PF 0.25% 10ML VIAL IJ ONE (09:24)
[2023-09-19 09:38] LABS: ABG BASE EXCESS -0.9 mmol/L (-2.0-3.0); ABG HCO3 23.2 mmol/L (21.0-28.0); ABG OXYGEN SATURATION 99.6 % (95.0-99.0); ABG PCO2 37 mmHg (35-48); ABG PH 7.417 (7.35-7.450); CARBON MONOXIDE 0.8; HHb 0.4; PO2, ARTERIAL BG 369.9 mmHg (83.0-108.0); VENT MODE, BG OR VENT (ROOM AIR)
[2023-09-19] MEDS ORDERED: NEOSTIGMINE METHYLSULFATE 1MG/ML IV ONE (09:38)
[2023-09-19] MEDS ORDERED: GLYCOPYRROLATE 0.2 MG/ML 5 ML VIAL ONE (09:38)
[2023-09-19] MEDS ORDERED: ALBUMIN (HUMAN) 25% 50 ML IV ONE (11:01)
[2023-09-19] MEDS ORDERED: PHENYLEPHRINE HCL 10 MG/ML 1ML VIAL IV ONE (11:31)
[2023-09-19 14:36] LABS: HEMATOCRIT 38.7 % (42-54); MEAN CORPUSCULAR HEMOGLOBIN 33.9 pg (27.0-33.0); MEAN CORPUSCULAR HGB CONC 33.9 g/dL (32.0-36.0); MEAN CORPUSCULAR VOLUME 100.3 fL (79-99); PLATELET COUNT (AUTO) 164 K/uL (130-400); RED BLOOD CELL COUNT(AUTO) 3.86 MIL/uL (4.50-6.20); RED CELL DISTRIBUTION WIDTH 13.4 % (11.0-15.5); WHITE BLOOD COUNT (AUTO) 23.2 K/uL (4.8-10.8)
[2023-09-19 15:22] LABS: BAND NEUTROPHILS % (MANUAL) 7 % (0-2); LYMPHOCYTES % (MANUAL) 7 % (22-44); MAN.DIFF COMMENT-IMPRESSION MANUAL DIFFERENTIAL; MONOCYTES % (MANUAL) 3 % (2-9); SEGMENTED NEUTROPHILS % 83 % (40-70); TOTAL CELLS COUNTED 100; WBC MORPHOLOGY CONSISTENT W/DIFF
[2023-09-19 15:23] LABS: PLATELET MORPHOLOGY COMMENT ADEQUATE
[2023-09-19] MEDS: LEVOFLOXACIN 250 MG/D5W 50ML 50 ML IVPB SCH (16:38)
[2023-09-19] MEDS: SODIUM ZIRCONIUM CYCLOSILICATE 5 GM POWD.PACK PO ONE (16:38)
[2023-09-19] MEDS ORDERED: VANCOMYCIN PROTOCOL PER PHARMACY IV SCH (18:00)
[2023-09-19] MEDS: VANCOMYCIN KIT 1 GM/250 ML IV.KIT IV SCH (18:55)
[2023-09-19] MEDS: PHENYLEPHRINE HCL IV PRN (19:36)
[2023-09-19] MEDS: NACL 0.9% IV PRN (19:36)
[2023-09-19 20:09] LABS: ALBUMIN 2.2 g/dL (3.5-5.0); POTASSIUM 4.8 mmol/L (3.5-5.1); TOTAL PROTEIN, SERUM 5.5 g/dL (6.0-8.3)
[2023-09-19 20:40] LABS: CREATININE 8.5 mg/dL (0.5-1.3)
[2023-09-19] MEDS: MIDODRINE HCL 5 MG TABLET PO SCH (21:47)
[2023-09-20] VITALS (52 sets, daily range): BP systolic 87–141; BP diastolic 50–84; PULSE 91–108; RESP 15–29; O2SAT 96–100
[2023-09-20 03:59] LABS: BASOPHILS # (AUTO) 0.03 K/uL (0.00-0.20); BASOPHILS % (AUTO) 0.2 % (0.0-5.0); EOSINOPHILS # (AUTO) 0.02 K/uL (0.00-0.70); EOSINOPHILS % (AUTO) 0.1 % (0.0-8.0); HEMATOCRIT 37.3 % (42-54); LYMPHOCYTES # (AUTO) 0.8 K/uL (1.0-4.8); LYMPHOCYTES % (AUTO) 5.6 % (21.0-51.0); MEAN CORPUSCULAR HGB CONC 34.3 g/dL (32.0-36.0); MEAN CORPUSCULAR VOLUME 98.9 fL (79-99); MONOCYTES # (AUTO) 1.2 K/uL (0.1-1.0); MONOCYTES % (AUTO) 8.3 % (3.0-13.0); NEUTROPHILS # (AUTO) 12.7 K/uL (1.8-7.7); NEUTROPHILS % (AUTO) 85.1 % (40.0-77.0); PLATELET COUNT (AUTO) 114 K/uL (130-400); RED BLOOD CELL COUNT(AUTO) 3.77 MIL/uL (4.50-6.20); RED CELL DISTRIBUTION WIDTH 13.4 % (11.0-15.5); WHITE BLOOD COUNT (AUTO) 14.9 K/uL (4.8-10.8)
[2023-09-20 04:16] LABS: ALBUMIN 2.3 g/dL (3.5-5.0); BILIRUBIN,TOTAL 3.4 mg/dL (0.2-1.0); MAGNESIUM 2.2 mg/dL (1.80-2.40); POTASSIUM 5.5 mmol/L (3.5-5.1); TOTAL PROTEIN, SERUM 6.2 g/dL (6.0-8.3)
[2023-09-20 05:09] LABS: CREATININE 9.8 mg/dL (0.5-1.3)
[2023-09-20] MEDS: NA ZIRCON CYCLOSIL(LOKELMA 10GM) PO ONE (05:48)
[2023-09-20] MEDS: SODIUM ZIRCONIUM CYCLOSILICATE 5 GM POWD.PACK PO SCH (06:00)
[2023-09-21] VITALS (24 sets, daily range): BP systolic 93–144; BP diastolic 63–83; PULSE 78–102; RESP 14–18; TEMP 97.5–97.9; O2SAT 96–97
[2023-09-21 03:51] LABS: BASOPHILS # (AUTO) 0.05 K/uL (0.00-0.20); BASOPHILS % (AUTO) 0.4 % (0.0-5.0); EOSINOPHILS # (AUTO) 0.25 K/uL (0.00-0.70); EOSINOPHILS % (AUTO) 2.1 % (0.0-8.0); HEMATOCRIT 34.6 % (42-54); IMMATURE GRANULOCYTE ABSOLUTE 0.12 K/uL (0-1); LYMPHOCYTES # (AUTO) 0.9 K/uL (1.0-4.8); LYMPHOCYTES % (AUTO) 7.4 % (21.0-51.0); MEAN CORPUSCULAR HEMOGLOBIN 33.6 pg (27.0-33.0); MEAN CORPUSCULAR HGB CONC 34.4 g/dL (32.0-36.0); MEAN CORPUSCULAR VOLUME 97.7 fL (79-99); MONOCYTES # (AUTO) 0.9 K/uL (0.1-1.0); MONOCYTES % (AUTO) 7.7 % (3.0-13.0); NEUTROPHILS # (AUTO) 9.7 K/uL (1.8-7.7); NEUTROPHILS % (AUTO) 81.4 % (40.0-77.0); PLATELET COUNT (AUTO) 140 K/uL (130-400); RED BLOOD CELL COUNT(AUTO) 3.54 MIL/uL (4.50-6.20); RED CELL DISTRIBUTION WIDTH 13.2 % (11.0-15.5)
[2023-09-21 04:17] LABS: ALBUMIN 2.2 g/dL (3.5-5.0); BILIRUBIN,TOTAL 2.5 mg/dL (0.2-1.0); MAGNESIUM 2.2 mg/dL (1.80-2.40); POTASSIUM 4.8 mmol/L (3.5-5.1); TOTAL PROTEIN, SERUM 6.1 g/dL (6.0-8.3)
[2023-09-21 04:21] LABS: CREATININE 11.7 mg/dL (0.5-1.3)
[2023-09-21] MEDS: ALBUMIN (HUMAN) 25% 100 ML IV STA (11:45)
[2023-09-21] MEDS: VANCOMYCIN KIT 1 GM/250 ML IV.KIT IV SCH (18:23)
[2023-09-22 04:01] VITALS: BP 129/66; PULSE 89; RESP 18
[2023-09-22 06:19] LABS: HEMATOCRIT 32.8 % (42-54); MEAN CORPUSCULAR HEMOGLOBIN 34.3 pg (27.0-33.0); MEAN CORPUSCULAR HGB CONC 34.8 g/dL (32.0-36.0); MEAN CORPUSCULAR VOLUME 98.8 fL (79-99); RED BLOOD CELL COUNT(AUTO) 3.32 MIL/uL (4.50-6.20); RED CELL DISTRIBUTION WIDTH 13.2 % (11.0-15.5); WHITE BLOOD COUNT (AUTO) 11.3 K/uL (4.8-10.8)
[2023-09-22 06:34] LABS: ALBUMIN 2.2 g/dL (3.5-5.0); BILIRUBIN,TOTAL 1.7 mg/dL (0.2-1.0); MAGNESIUM 2.1 mg/dL (1.80-2.40); POTASSIUM 4.3 mmol/L (3.5-5.1); TOTAL PROTEIN, SERUM 5.8 g/dL (6.0-8.3)
[2023-09-22 06:45] LABS: CREATININE 8.3 mg/dL (0.5-1.3)
[2023-09-22 07:00] VITALS: BP 124/71; PULSE 89; RESP 20
[2023-09-22 08:00] VITALS: O2SAT 97
[2023-09-22 11:00] VITALS: BP 126/74; PULSE 84; RESP 20
[2023-09-22 16:00] VITALS: BP 147/81; PULSE 81; RESP 20
== END 2023-09-22 17:30 | disposition home or self-care (01) | DRG 853 ==
LOC: EDH 11:08 → EDHIP 11:49 → 4DH 18:27 → 2BH 09-19 11:49 → 4BH 09-20 16:10
PROVIDERS: ADMIT Internal Medicine; ATTEND Internal Medicine
PROC: 5A1D70Z Performance of Urinary Filtration, Intermittent, Less than 6 Hours Per Day (ICD-10-PCS; 2023-09-18)
PROC: 0FT44ZZ Resection of Gallbladder, Percutaneous Endoscopic Approach (ICD-10-PCS; principal; 2023-09-19 08:28)
PROC: 5A1D70Z Performance of Urinary Filtration, Intermittent, Less than 6 Hours Per Day (ICD-10-PCS; 2023-09-21)
DX: A41.9 Sepsis, unspecified organism (principal); N18.6 End stage renal disease; R65.21 Severe sepsis with septic shock; E87.20 Acidosis, unspecified; I12.0 Hypertensive chronic kidney disease with stage 5 chronic kidney disease or end stage renal disease; K80.00 Calculus of gallbladder with acute cholecystitis without obstruction; E11.22 Type 2 diabetes mellitus with diabetic chronic kidney disease; E11.319 Type 2 diabetes mellitus with unspecified diabetic retinopathy without macular edema; D64.9 Anemia, unspecified; E78.5 Hyperlipidemia, unspecified; K82.A1 Gangrene of gallbladder in cholecystitis; H54.61 Unqualified visual loss, right eye, normal vision left eye; E86.1 Hypovolemia; E87.5 Hyperkalemia; K82.8 Other specified diseases of gallbladder; Z99.2 Dependence on renal dialysis; Z83.3 Family history of diabetes mellitus
CPT/HCPCS: 36415; 36600; 71045; 74176; 74181; 76705; 80048; 80053; 80202; 82435; 82803; 82947; 82948; 83036; 83605; 83690; 83735; 84100; 84132; 84295; 84443; 84484; 85018; 85025; 85027; 85610; 85730; 86704; 86706; 87040; 87340; 90935; 93005; 96374; 96375; C9113; G0378; J1100; J1170; J1956; J2175; J2250; J2270; J2371; J2405; J2704; J2710; J3010; J3370; J3490; J7030; P9046; P9047; Q0161; A4222; A4223; A4600; A4649; C1769; J0665; S8037

== ENCOUNTER 2024-11-11 17:45 | Emergency (ER) | payer OTHER, MEDICARE ==
[~2024-11-11] VITALS: Ht 167.6 cm; Wt 81.8 kg
[~2024-11-11 17:45] MED LIST changes: -ACET-2079 PO; +FOLI0.8T22 PO; -FOLI1TAB85 PO; -INSLAN SQ; -LEVO750T68 PO; -LINA5TAB PO; +SEMA2PEN SQ; +SEVE0.8P3 PO
--- NOTE | 2024-11-11 18:16 | ERN ---
ED Note History of Present Illness Stated Complaint: LAVA CLOGGED, Chief Complaint: Other Problems Time Seen by MD: 17:50 Dictation: PATIENT IS A 49-YEAR-OLD MALE COMING IN TODAY FROM HEMODIALYSIS AFTER THEY WERE UNABLE TO PERFORM HEMODIALYSIS. HE STATES THAT HE HAS HAD A LEFT ARM FISTULA THAT WAS DONE BY DR. CHAO AT [facility] LAST YEAR IN THE LAST THREE ATTEMPTS TO DIALYZE HAVE BEEN PROBLEMATIC. TODAY WHEN THEY WENT TO ATTEMPT DIALYSIS THEY WERE NOT ABLE TO GET ANY FLOW SO THEY SENT HIM TO THE HOSPITAL. PATIENT HAS A THRILL AND BRUIT TO THE FISTULA, DISTAL NEUROVASCULAR CMS INTACT. PULSES ARE PALPABLE NO PAIN AT THIS TIME. Allergies: Coded Allergies: Penicillins (Unverified Allergy, Unknown, 04/08/19) Home Meds Reported Medications Semaglutide (Ozempic) 2 Mg/0.75 Ml (8 Mg/3 Ml) Pen.injctr, 2 MG SQ QWEEK 09/17/23 Sevelamer Carbonate (Sevelamer Carbonate) 0.8 Gram Powd.pack, 0.8 GM PO TID 09/17/23 Folic Acid/Vitamin B Comp W-C (Breanna-Yossi Tablet) 0.8 Mg Tablet, 0.8 MG PO TID, TAB 09/17/23 Past Medical History Past Medical History: Diabetes-Type II, Hypertension, Renal Failure, Other Additional Past Medical Hx: ESRD. RIGHT EYE BLINDNESS Surgical History: LAVA Surgical History Other: EYE SURGERY, NECK Social History: Negative, Lives with family, Other RN Note Reviewed/Agreed w/PFSH: Yes Review of System Dictation CONSTITUTIONAL: NEGATIVE EXCEPT FOR HPI HEAD/FACE: NEGATIVE EXCEPT FOR HPI EENT: NEGATIVE EXCEPT FOR HPI RESPIRATORY: NEGATIVE EXCEPT FOR HPI POSSIBLE OCCLUDED LEFT ARM FISTULA GASTROINTESTINAL/ABDOMINAL: NEGATIVE EXCEPT FOR HPI GENITOURINARY: NEGATIVE EXCEPT FOR HPI MUSCULOSKELETAL: NEGATIVE EXCEPT FOR HPI INTEGUMENTARY: NEGATIVE EXCEPT FOR HPI NEUROLOGICAL/PSYCH: NEGATIVE EXCEPT FOR HPI HEMATOLOGIC/LYMPHATIC: NEGATIVE EXCEPT FOR HPI ALL SYSTEMS NEGATIVE, EXCEPT NOTED ABOVE. 13 POINT REVIEW OF SYSTEMS ASSESSED AND ALL NEGATIVE EXCEPT FOR ABOVE. Initial Vital Sign VS Vital Signs Date Time Temp Pulse Resp B/P (MAP) Pulse Ox O2 Delivery O2 Flow Rate FiO2 11/11/24 17:48 98.4 83 16 149/95 100 Room Air 0 11/11/24 18:38 21 Physical Exam Dictation VITAL SIGNS REVIEWED GENERAL APPEARANCE: ALERT, ORIENTED X 3, NO ACUTE DISTRESS, WELL DEVELOPED, NOURISHED. HEAD AND FACE: NON-TRAUMATIC. EYES: PERRL, PINK CONJUNCTIVAS, EYELID NO TRAUMA, ANTERIOR CHAMBER WITH ARCUS SENILIS. EARS: PINNAS INTACT AND NO SIGNS OF TRAUMA OR ERYTHEMA EAR CANALS CLEAR AND NO DISCHARGE TM NO ERYTHEMA NOSE: NO DISCHARGE, NO BLEEDING. OROPHARYNX: MOUTH NORMAL, TONGUE PINK, PHARYNX CLEAR,NO ERYTHEMA, TONSILS NO EXUDATES, NO ABSCESSES NOTED, MUCOUS MEMBRANE MOIST NECK: SUPPLE, NON-TENDER, NO THYROMEGALY, NO MASSES, NO JVD, NO BRUITS BREAST:DEFERRED CHEST:NO TENDERNESS, NO CREPITUS, NO PARADOXICAL MOVEMENT, NO RETRACTIONS LUNGS:CLEAR, WELL-VENTILATED, SYMMETRIC, NO RALES, NO WHEEZING, NO RHONCHI, NO STRIDOR, GOOD BREATH SOUNDS BILATERALLY HEART: REGULAR RATE, REGULAR RHYTHM, NO MURMUR, NO GALLOPS VASCULAR: NO PERIPHERAL EDEMA, LEFT ARM FISTULA WITH WEAK THRILL AND BRUIT. DISTAL NEUROVASCULAR CMS INTACT LEFT HAND ABDOMEN: SOFT, POSITIVE BOWEL SOUNDS, NONDISTENDED, NO GUARDING, NONTENDER, NO REBOUND, NO MASSES NO HEPATOMEGALY, NO SPLENOMEGALY, NO MORALES'S SIGN, NO HERNIAS. RECTAL: DEFERRED GENITAL: DEFERRED NEUROLOGICAL: NORMAL SPEECH, MOTOR FUNCTION INTACT, SENSORY FUNCTION INTACT MUSCULOSKELETAL: NECK NONTENDER, FULL RANGE OF MOTION, BACK NONTENDER, FULL RANGE OF MOTION, EXTREMITIES: NONTENDER, FULL RANGE OF MOTION SKIN: COLOR PINK, DRY, NO TURGOR, NO RASH, NO LACERATIONS, NO ABRASIONS, NO CONTUSIONS. LYMPHATIC: DEFERRED Results (Laboratory/Radiology) Laboratory/Radiology Laboratory Tests Test 11/11/24 18:19 White Blood Count 9.2 K/uL (4.8-10.8) Red Blood Count 4.13 MIL/uL (4.50-6.20) L Hemoglobin 14.4 g/dL (14.0-18.0) Hematocrit 40.9 % (42-54) L Mean Corpuscular Volume 99.0 fL (79-99) Mean Corpuscular Hemoglobin 34.9 pg (27.0-33.0) H Mean Corpuscular Hemoglobin Concent 35.2 g/dL (32.0-36.0) Red Cell Distribution Width 13.1 % (11.0-15.5) Platelet Count 186 K/uL (130-400) Mean Platelet Volume 8.8 fL (7.5-10.5) Immature Granulocyte % (Auto) 0.4 % (0-1) Neutrophils (%) (Auto) 66.3 % (40.0-77.0) Lymphocytes (%) (Auto) 18.0 % (21.0-51.0) L Monocytes (%) (Auto) 8.9 % (3.0-13.0) Eosinophils (%) (Auto) 5.6 % (0.0-8.0) Basophils (%) (Auto) 0.8 % (0.0-5.0) Neutrophils # (Auto) 6.1 K/uL (1.8-7.7) Lymphocytes # (Auto) 1.7 K/uL (1.0-4.8) Monocytes # (Auto) 0.8 K/uL (0.1-1.0) Eosinophils # (Auto) 0.51 K/uL (0.00-0.70) Basophils # (Auto) 0.07 K/uL (0.00-0.20) Absolute Immature Granulocyte (auto 0.04 K/uL (0-1) Nucleated Red Blood Cells 0.0 % (0.0-0.19) Prothrombin Time 11.2 SEC (9.6-11.6) Prothromb Time International Ratio 1.06 (0.85-1.15) Activated Partial Thromboplast Time 29.5 SEC (26.3-35.5) Sodium Level 146 mmol/L (136-145) H Potassium Level 5.0 mmol/L (3.5-5.1) Chloride Level 104 mmol/L (101-111) Carbon Dioxide Level 31 mmol/L (21-32) Blood Urea Nitrogen 55 mg/dL (7-18) H Creatinine 13.1 mg/dL (0.5-1.3) *H Glomerular Filtration Rate Calc 4 mL/min (>90) Random Glucose 113 mg/dL (70-105) H Total Calcium 8.4 mg/dL (8.5-10.1) L 1900/SPOKE WITH THE COLLECTION SUPERVISOR AND FISTULA IS OCCLUDED. THERE WAS NO INTERVENTIONAL RADIOLOGY AT THE [facility] UNTIL THURSDAY. SPOKE WITH DJ RN ACADEMIC SUPPORT ASSISTANT AND SHE WILL ATTEMPT A TRANSFER TO A HIGHER LEVEL OF CARE FOR [place]. 5/SPOKE WITH DERRICK RN ACADEMIC SUPPORT ASSISTANT AND SHE HAD SPOKEN TO THE RADIOLOGY DEPARTMENT AT [facility]. NO INTERVENTIONAL RADIOLOGY WE WILL BE AVAILABLE UNTIL THURSDAY. REVIEW OF THE EKG SHOWS NORMAL SINUS RHYTHM, POTASSIUM IS NORMAL. PATIENT HAS BILATERAL BREATH SOUNDS THAT ARE CLEAR HE WAS ADVISED TO COME BACK THURSDAY MORNING AT 05:26 100 HOURS TO BE D CLOTTED AND WE COULD PUT HIM IN THE HOSPITAL THEN BE NEEDED DIALYSIS HE WOULD BE ADMITTED. HE IN HIS MOTHER AT BEDSIDE THEY AGREED Labs Reviewed?: Yes EKG: (+) NSR EKG Comment: EKG NORMAL SINUS RHYTHM/HEART RATE 73/AXIS NORMAL/NO ECTOPY ED Course ED Course Orders Procedure Category Date Status Time Us Art Byp Gft, US 11/11/24 Taken Uni/Ltd 18:06 Cbc With Differential LAB 11/11/24 Complete 18:06 12 Lead Ekg Tracing- EKG 11/11/24 Complete Technical 18:06 Basic Metabolic Panel LAB 11/11/24 Complete 18:06 Pt And Ptt LAB 11/11/24 Complete 18:06 Vital Signs Date Time Temp Pulse Resp B/P (MAP) Pulse Ox O2 Delivery O2 Flow Rate FiO2 11/11/24 18:38 99.0 76 16 139/79 99 Room Air* 0 21 11/11/24 17:48 98.4 83 16 149/95 100 Room Air 0 Medical Decision Making MDM MDM: DIFFERENTIAL DIAGNOSIS: CLOTTED FISTULA/ELECTROLYTE IMBALANCE/DEHYDRATION/FLUID OVERLOAD/UREMIA/EKG CHANGES RATIONALE: TESTS CONSIDERED AND ORDERED SECONDARY TO SHARED DECISION MAKING INCLUDE: EKG/LABS PREVIOUS OUTSIDE RECORDS REVIEWED: OLD ER VISITS. RISK OF COMPLICATION AND/OR MORBIDITY OR MORTALITY OF PATIENT MANAGEMENT: NONE MEDICATIONS-PER MEDICATION RECONCILIATION NEED FOR HOSPITALIZATION: PATIENT DOES NOT MEET CRITERIA FOR HOSPITALIZATION. NO NEED FOR EMERGENCY MAJOR/MINOR SURGERY: NO THERE ARE NO SOCIAL CONCERNS WITH THIS PATIENT. PRESCRIPTION DRUG MANAGEMENT PRESCRIPTIONS WILL INCLUDE SYMPTOMATIC CARE PATIENT'S PRIOR EXTERNAL MEDICAL RECORDS FROM OTHER ER VISITS WERE REVIEWED BY ME INDICATED. PRIOR TESTING AND RESULTS FROM PREVIOUS VISITS WERE REVIEWED. PRIOR TESTS WERE TAKEN INTO ACCOUNT WITH MEDICAL DECISION MAKING AND RESOURCE UTILIZATION, INDEPENDENT HISTORIAN/HISTORIANS WERE USED TO OBTAIN COMPLETE MEDICAL HISTORY. I INDEPENDENTLY INTERPRETED THE TEST THAT WERE PERFORMED, RESULTS WERE REVIEWED BY ME AND CONSIDERED FINDINGS ON RADIOLOGY IF ORDERED. MEDICAL MANAGEMENT AND EXAMINATION INTERPRETATION DISCUSSIONS WERE HAD BY ME WITH OTHER QUALIFIED HEALTHCARE PROFESSIONALS INDICATED FOR THE PATIENT'S CARE. DX & DISP Disposition: Discharge Departure Impression: Primary Impression: AV fistula occlusion Additional Impressions: ESRD (end stage renal disease) on dialysis, Hypernatremia Condition: Stable Additional Instructions: FOLLOW-UP WITH PRIMARY CARE PROVIDER IN 1 TO 2 DAYS. TAKE MEDICATIONS DIRECTED HERE IN THE EMERGENCY ROOM. OKAY TO CONTINUE HOME MEDICATIONS UNLESS OTHERWISE DISCUSSED DURING YOUR VISIT IN THE EMERGENCY ROOM TODAY. RETURN TO YOUR NEAREST EMERGENCY ROOM IF SYMPTOMS WORSEN OR IF THERE IS NO IMPROVEMENT. CALL 911 IF YOU NEED IMMEDIATE ASSISTANCE. TAKE TYLENOL OR MOTRIN [id number] NEEDED AND IF NO CONTRAINDICATIONS ARE PRESENT. INCREASE ORAL HYDRATION. A WOUND CULTURE OR URINE CULTURE WAS ORDERED HERE IN THE EMERGENCY ROOM DEPARTMENT PLEASE FOLLOW-UP WITH PRIMARY CARE PROVIDER AND ADVISE THEM TO GET REPEAT PORTS FROM OUR FACILITY. IF YOU HAD ANY MARISOL WRAP/SPLINTS THAT WERE APPLIED HERE, PLEASE DO NOT REMOVE THEM UNTIL YOU SEE YOUR PRIMARY CARE OR SPECIALTY. RETURN TO THE EMERGENCY ROOM THURSDAY 05:00 HOURS FOR REASSESSMENT OF ELECTROLYTE AND EKG. COME BACK TO THE EMERGENCY ROOM SOONER IF SHORTNESS BREATH CHEST PAIN NAUSEA VOMITING RN ANY UNABLE TO KEEP FOOD OR FLUIDS DOWN. Referrals: GABE HIGH (PCP) Time of Disposition: 19:13 I have reviewed the case, and I agree with, Diagnosis and Plan SANDI ARMENDARIZ NP Nov 11, 2024 18:16
[2024-11-11 18:25] LABS: IMMATURE GRANULOCYTE ABSOLUTE 0.04 K/uL (0-1); NUCLEATED RED BLOOD CELLS 0.0 % (0.0-0.19); PLATELET COUNT (AUTO) 186 K/uL (130-400); RED BLOOD CELL COUNT(AUTO) 4.13 MIL/uL (4.50-6.20); RED CELL DISTRIBUTION WIDTH 13.1 % (11.0-15.5); WHITE BLOOD COUNT (AUTO) 9.2 K/uL (4.8-10.8)
[2024-11-11 18:34] LABS: GLOMERULAR FILTR. RATE CALC 4.0 mL/min (>90); GLUCOSE,RANDOM 113.0 mg/dL (70-105); SODIUM SERUM 146.0 mmol/L (136-145); UREA NITROGEN, BLOOD 55.0 mg/dL (7-18)
[2024-11-11 18:36] LABS: INR 1.06 (0.85-1.15)
[2024-11-11 18:41] LABS: CREATININE 13.1 mg/dL (0.5-1.3)
--- NOTE | 2024-11-11 18:52 | EKG ---
[facility] Test Date: 2024-11-11 Test Time: 18:49:39 Pat Name: SHANIQUA JAUREGUI Department: ED Room: Gender: M X Ray Consultant: 08 : 1975 Requested By: SANDI ARMENDARIZ Order Number: [id number] Reading MD: Elvis Alcala Measurements Intervals [place] Rate: 73 P: 45 NH: 163 QRS: -24 QRSD: 88 T: 30 QT: 386 QTc: 427 Interpretive Statements Sinus rhythm Low voltage, precordial leads Compared to ECG 09/17/2023 11:48:08 Sinus tachycardia no longer present Right superior axis no longer present Myocardial infarct finding no longer present Electronically Signed On 11-12-2024 10:52:43 CDT by Elvis Alcala Please click the below link to view image of tracing.
[2024-11-11 19:35] VITALS: BP 143/74; PULSE 72; RESP 17; TEMP 98.6; O2SAT 99
--- NOTE | 2024-11-11 20:06 | HMCIMG ---
EXAMINATION: DUPLEX ULTRASOUND EXAMINATION OF THE LEFT UPPER EXTREMITY ARTERIO-VENOUS FISTULA. CLINICAL HISTORY: To evaluate fistula. COMPARISON: None. FINDINGS: There is a radio-cephalic arterio-venous fistula in the left upper extremity. The velocities are as follows Radial artery (arterial inflow): 78 cm/s. Cephalic vein (venous outflow): 40 cm/s. Arterial anastomosis: 74 cm/s. Venous anastomosis: 40 cm/s. A small hematoma measuring 1.3 x 1.0 cm is present adjacent to the fistula. There is a thrombus at the anastomosis and low velocity. IMPRESSION: Thrombus at the anastomosis and low velocity in the radio cephalic arterio-venous fistula in the left upper extremity. A small hematoma measuring 1.3 x 1.0 cm is present adjacent to the fistula. /[place]
== END 2024-11-11 19:45 | disposition home or self-care (01) ==
LOC: EDH 17:45
DX: T82.590A Other mechanical complication of surgically created arteriovenous fistula, initial encounter (principal); I12.0 Hypertensive chronic kidney disease with stage 5 chronic kidney disease or end stage renal disease; E11.22 Type 2 diabetes mellitus with diabetic chronic kidney disease; N18.6 End stage renal disease; E87.0 Hyperosmolality and hypernatremia; Z79.85 Long-term (current) use of injectable non-insulin antidiabetic drugs; Z88.0 Allergy status to penicillin; Z99.2 Dependence on renal dialysis
CPT/HCPCS: 36415; 80048; 85025; 85610; 85730; 93005; 93926; 99284

== ENCOUNTER 2025-01-05 10:35 | Emergency (ER) | payer OTHER, MEDICAID ==
[~2025-01-05] VITALS: Ht 167.6 cm; Wt 80.8 kg
[2025-01-05 10:44] VITALS: BP 104/68; PULSE 99; RESP 16; TEMP 97.4; O2SAT 99
--- NOTE | 2025-01-05 10:56 | ERN ---
ED Note History of Present Illness Stated Complaint: LAVA ISSUE Chief Complaint: Other Problems Time Seen by MD: 10:37 Dictation: PATIENT IS A 49-YEAR-OLD MALE WITH A END-STAGE RENAL DISEASE AND LEFT ARM FISTULA. HE UNDERWENT A D CLOTTING AND WAS DISCHARGED [place] [facility] [place]. HE CAME IN TODAY BECAUSE CHROMIC SUTURES WERE USED IN THE FISTULA AND HE STILL SAW REMNANTS OF ONE OF THE SUTURES. DRESSING WAS REMOVED TO LEFT ARM FISTULA THE CHROMIC IS DISSOLVING ON ITS OWN THERE WAS NO ERYTHEMA NO SWELLING NO TENDERNESS GOOD THRILL AND BRUIT NOTED TO THE FISTULA. DISTAL NEUROVASCULAR CMS INTACT. ADDITIONALLY HE STATES HE WENT TO HEMODIALYSIS YESTERDAY AND WAS ABLE TO COMPLETE THE HEMODIALYSIS SUCCESSFULLY USING THE FISTULA. Allergies: Coded Allergies: Penicillins (Unverified Allergy, Unknown, 04/08/19) Home Meds Reported Medications Semaglutide (Ozempic) 2 Mg/0.75 Ml (8 Mg/3 Ml) Pen.injctr, 2 MG SQ QWEEK 09/17/23 Sevelamer Carbonate (Sevelamer Carbonate) 0.8 Gram Powd.pack, 0.8 GM PO TID 09/17/23 Folic Acid/Vitamin B Comp W-C (Breanna-Yossi Tablet) 0.8 Mg Tablet, 0.8 MG PO TID, TAB 09/17/23 Past Medical History Past Medical History: Diabetes-Type II, Hypertension, Renal Disese Additional Past Medical Hx: esrd Surgical History: Cholecystectomy, Other, LAVA Surgical History Other: neck and eye sx Social History: Negative, Lives with family, Other RN Note Reviewed/Agreed w/PFSH: Yes Review of System Dictation CONSTITUTIONAL: NEGATIVE EXCEPT FOR HPI HEAD/FACE: NEGATIVE EXCEPT FOR HPI EENT: NEGATIVE EXCEPT FOR HPI RESPIRATORY: NEGATIVE EXCEPT FOR HPI GASTROINTESTINAL/ABDOMINAL: NEGATIVE EXCEPT FOR HPI GENITOURINARY: NEGATIVE EXCEPT FOR HPI MUSCULOSKELETAL: NEGATIVE EXCEPT FOR HPI INTEGUMENTARY: NEGATIVE EXCEPT FOR HPI CHROMIC SUTURES TO LEFT ARM FISTULA NEUROLOGICAL/PSYCH: NEGATIVE EXCEPT FOR HPI HEMATOLOGIC/LYMPHATIC: NEGATIVE EXCEPT FOR HPI ALL SYSTEMS NEGATIVE, EXCEPT NOTED ABOVE. 13 POINT REVIEW OF SYSTEMS ASSESSED AND ALL NEGATIVE EXCEPT FOR ABOVE. Initial Vital Sign VS Vital Signs Date Time Temp Pulse Resp B/P (MAP) Pulse Ox O2 Delivery O2 Flow Rate FiO2 01/05/25 10:38 97.3 99 16 104/68 99 Room Air 0 01/05/25 10:44 21 Physical Exam Dictation VITAL SIGNS REVIEWED GENERAL APPEARANCE: ALERT, ORIENTED X 3, NO ACUTE DISTRESS, WELL DEVELOPED, NOURISHED. HEAD AND FACE: NON-TRAUMATIC. EYES: PERRL, PINK CONJUNCTIVAS, EYELID NO TRAUMA, ANTERIOR CHAMBER WITH ARCUS SENILIS. EARS: PINNAS INTACT AND NO SIGNS OF TRAUMA OR ERYTHEMA EAR CANALS CLEAR AND NO DISCHARGE TM NO ERYTHEMA NOSE: NO DISCHARGE, NO BLEEDING. OROPHARYNX: MOUTH NORMAL, TONGUE PINK, PHARYNX CLEAR,NO ERYTHEMA, TONSILS NO EXUDATES, NO ABSCESSES NOTED, MUCOUS MEMBRANE MOIST NECK: SUPPLE, NON-TENDER, NO THYROMEGALY, NO MASSES, NO JVD, NO BRUITS BREAST:DEFERRED CHEST:NO TENDERNESS, NO CREPITUS, NO PARADOXICAL MOVEMENT, NO RETRACTIONS LUNGS:CLEAR, WELL-VENTILATED, SYMMETRIC, NO RALES, NO WHEEZING, NO RHONCHI, NO STRIDOR, GOOD BREATH SOUNDS BILATERALLY HEART: REGULAR RATE, REGULAR RHYTHM, NO MURMUR, NO GALLOPS VASCULAR: NO PERIPHERAL EDEMA, LEFT ARM FISTULA WITH GOOD THRILL AND BRUIT NOTED. REMNANTS OF CHROMIC SUTURES INTACT. ABDOMEN: SOFT, POSITIVE BOWEL SOUNDS, NONDISTENDED, NO GUARDING, NONTENDER, NO REBOUND, NO MASSES NO HEPATOMEGALY, NO SPLENOMEGALY, NO MORALES'S SIGN, NO HERNIAS. RECTAL: DEFERRED GENITAL: DEFERRED NEUROLOGICAL: NORMAL SPEECH, MOTOR FUNCTION INTACT, SENSORY FUNCTION INTACT MUSCULOSKELETAL: NECK NONTENDER, FULL RANGE OF MOTION, BACK NONTENDER, FULL RANGE OF MOTION, EXTREMITIES: NONTENDER, FULL RANGE OF MOTION SKIN: COLOR PINK, DRY, NO TURGOR, NO RASH, NO LACERATIONS, NO ABRASIONS, NO CONTUSIONS. LYMPHATIC: DEFERRED Results (Laboratory/Radiology) Labs Reviewed?: Yes ED Course ED Course Orders Procedure Category Date Status Time *Nursing CPOE 01/05/25 Verified Communication: 10:52 Vital Signs Date Time Temp Pulse Resp B/P (MAP) Pulse Ox O2 Delivery O2 Flow Rate FiO2 01/05/25 10:44 97.3 99 16 104/68 99 Room Air* 0 21 01/05/25 10:38 97.3 99 16 104/68 99 Room Air 0 1055/PATIENT MADE AWARE THAT HE HAS A GOOD THRILL AND BRUIT AND THAT IS SUTURES ARE DISSOLVING DESIGNED. NO FEVER NO CHILLS NO ERYTHEMA NO SWELLING NO TENDERNESS. PATIENT INSTRUCTED TO FOLLOW UP WITH HIS PRIMARY CARE DOCTOR NEEDED. MOTHER AT BEDSIDE Medical Decision Making MDM MEDICAL DISCHARGE MAKING BASED ON REMOVAL OF DRESSING TO LEFT ARM FISTULA AND EXAMINATION OF SUTURES. SUTURES NOTED THAT ARE DISSOLVING TO THE PROXIMAL AND DISTAL BICEPS AREA. GOOD THRILL AND BRUIT NOTED. NO ERYTHEMA NO SWELLING NO TENDERNESS NO DISCHARGE DX & DISP Disposition: Discharge Departure Impression: Primary Impression: Encounter for wound re-check Condition: Stable Additional Instructions: FOLLOW-UP WITH PRIMARY CARE PROVIDER IN 1 TO 2 DAYS. TAKE MEDICATIONS DIRECTED HERE IN THE EMERGENCY ROOM. OKAY TO CONTINUE HOME MEDICATIONS UNLESS OTHERWISE DISCUSSED DURING YOUR VISIT IN THE EMERGENCY ROOM TODAY. RETURN TO YOUR NEAREST EMERGENCY ROOM IF SYMPTOMS WORSEN OR IF THERE IS NO IMPROVEMENT. CALL 911 IF YOU NEED IMMEDIATE ASSISTANCE. TAKE TYLENOL OR MOTRIN [id number] NEEDED AND IF NO CONTRAINDICATIONS ARE PRESENT. INCREASE ORAL HYDRATION. A WOUND CULTURE OR URINE CULTURE WAS ORDERED HERE IN THE EMERGENCY ROOM DEPARTMENT PLEASE FOLLOW-UP WITH PRIMARY CARE PROVIDER AND ADVISE THEM TO GET REPEAT PORTS FROM OUR FACILITY. IF YOU HAD ANY MARISOL WRAP/SPLINTS THAT WERE APPLIED HERE, PLEASE DO NOT REMOVE THEM UNTIL YOU SEE YOUR PRIMARY CARE OR SPECIALTY. CONTINUE ALL MEDICATIONS AND TREATMENTS FROM YOUR LAST VISIT TO [facility] IN YOUR DISCHARGE INSTRUCTIONS. FOLLOW UP WITH YOUR PRIMARY CARE DOCTOR NEEDED. Referrals: GABE HIGH (PCP) Time of Disposition: 10:55 I have reviewed the case, and I agree with, Diagnosis and Plan SANDI ARMENDARIZ NP Jan 05, 2025 10:56
== END 2025-01-05 11:23 | disposition home or self-care (01) ==
LOC: EDH 10:35
DX: I12.0 Hypertensive chronic kidney disease with stage 5 chronic kidney disease or end stage renal disease (principal); E11.22 Type 2 diabetes mellitus with diabetic chronic kidney disease; N18.6 End stage renal disease; Z79.85 Long-term (current) use of injectable non-insulin antidiabetic drugs; Z48.00 Encounter for change or removal of nonsurgical wound dressing; Z88.0 Allergy status to penicillin; Z90.49 Acquired absence of other specified parts of digestive tract
CPT/HCPCS: 99282